=== PATIENT | female | born 1975 | race Caucasian/White ===

== ENCOUNTER → 2017-07-28 | Outpatient (CLI) | payer OTHER ==
[2017-07-28] MEDS: GADOBUTROL 7.5 MMOL/7.5 ML VIAL IV ×2 (11:42)
== END | disposition home or self-care (01) ==
LOC: KCIC MRI 10:49
DX: G43.909 Migraine, unspecified, not intractable, without status migrainosus (principal); I10 Essential (primary) hypertension; R90.82 White matter disease, unspecified
CPT/HCPCS: 70553; A9585